=== PATIENT | male | born 1990 | race Caucasian/White ===

== ENCOUNTER 2018-07-04 00:05 | Emergency (ER) | payer OTHER ==
[2018-07-04 00:32] VITALS: BMI 36.5
[2018-07-04 00:35] VITALS: RESP 16; TEMP 98.3; O2SAT 98
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
[2018-07-04 02:14] VITALS: BP 117/63; PULSE 70
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
== END 2018-07-04 02:14 | disposition home or self-care (01) ==
LOC: H.ER 00:05
DX: M54.2 Cervicalgia (principal); R07.82 Intercostal pain; V43.52XA Car driver injured in collision with other type car in traffic accident, initial encounter; Y92.410 Unspecified street and highway as the place of occurrence of the external cause